=== PATIENT | male | born 1985 | race Caucasian/White ===

== ENCOUNTER 2017-06-19 18:48 | Emergency (ER) | payer BC, MEDICAID ==
[2017-06-19 19:20] VITALS: O2SAT 98
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
--- NOTE | 2017-06-19 20:19 | CT ---
PROCEDURE: CTA Chest HISTORY: LLL pain with elevated D-Dimer and opacity on x-ray Indication: Same as above Comparison: None Technique: CT of the chest was done with intravenous contrast followed by CT angiography of the pulmonary arteries. Coronal, Sagittal and 3D volumetric MIP reconstructions were generated from the acquired data. The patient was injected with contrast intravenously, without any documented immediate adverse reactions. This exam was performed according to our departmental dose-optimization program, which includes automated exposure control, adjustment of the mA and/or KV according to the patient's size and/or use of iterative reconstruction technique. FINDINGS: There is no visualization of filling defects in the main pulmonary trunk, main right and left pulmonary arteries or their lower order branches to suggest pulmonary embolism. The bilateral main pulmonary arteries are normal in caliber. There is no evidence of interventricular septal deviation or filling defects in the cardiac chambers. There are no pneumothoraces. There is presence of moderate size free-flowing bilateral pleural effusions and mild bilateral lower lobe dependent atelectasis/infiltrate, findings slightly worse on the right side. There is presence of a 4 mm noncalcified nodule in the superior segment of the right lower lobe of the lung The trachea, bilateral mainstem bronchi and the bilateral main segmental bronchi are patent without any intraluminal mass lesions. There is no gross evidence of clinically significant thoracic aortic aneurysm or thoracic aortic dissection. There is no clinically significant pericardial effusion. There are no pathologically enlarged lymph nodes in the mediastinum, bilateral hilar, bilateral supraclavicular or the bilateral axillary regions. There is presence of few old nonunited bilateral lower rib fractures The visualized thoracic spine shows evidence of prior surgery and a nonunited age indeterminate fracture involving the anterior one third of the T11 vertebral body. Incidental note is made of mild bilateral gynecomastia Limited evaluation of the evaluated upper abdomen does not show any gross abnormalities. IMPRESSION: There is no pulmonary embolism. There is presence of moderate size free-flowing bilateral pleural effusions and mild bilateral lower lobe dependent atelectasis/infiltrate, findings slightly worse on the right side. There is presence of few old nonunited bilateral lower rib fractures The visualized thoracic spine shows evidence of prior surgery and a nonunited age indeterminate fracture involving the anterior one third of the T11 vertebral body. Incidental note is made of mild bilateral gynecomastia There is presence of a 4 mm noncalcified nodule in the superior segment of the right lower lobe of the lung. *Recommendations for follow-up and management of nodules detected incidentally at non screening CT. LOW RISK PATIENT (Minimal or absent history of smoking and no other known risk factors) Nodule 4 mm or less: No further follow-up is needed. HIGH RISK PATIENT (History of smoking or of other know risk factors) Nodule 4 mm or less: Follow-up CT at 12 months. If stable no further follow-up. Electronically signed by: Dez Galarza MD 06/19/2017 8:18 PM CDT Workstation: [id number]
[2017-06-19] MEDS ORDERED: CEFUROXIME AXETIL TAB 250 MG TAB PO ONE (20:48)
[2017-06-19] MEDS ORDERED: levoFLOXacin 500 MG TAB PO ONE (21:04)
[2017-06-19 21:38] VITALS: BP 138/74; TEMP 97
== END 2017-06-19 21:20 | disposition home or self-care (01) ==
LOC: ER 18:48
DX: J18.9 Pneumonia, unspecified organism (principal); Z98.1 Arthrodesis status; G82.20 Paraplegia, unspecified

== ENCOUNTER → 2017-06-19 | Outpatient (CLI) | payer BC, MEDICAID | END | disposition home or self-care (01) | LOC: GMAB 17:32 | PROVIDERS: ATTEND Family Medicine | DX: R06.02 Shortness of breath (principal) ==

== ENCOUNTER → 2017-07-16 | Outpatient (CLI) | payer BC, OTHER | END | disposition home or self-care (01) | LOC: YCFC.O 09:39 | PROVIDERS: ATTEND Anesthesiology Pain Medicine | DX: Z79.891 Long term (current) use of opiate analgesic (principal) ==

== ENCOUNTER → 2017-09-19 | Outpatient (CLI) | payer BC, MEDICAID | END | disposition home or self-care (01) | LOC: GMAB 14:47 | PROVIDERS: ATTEND Family Medicine | DX: N23 Unspecified renal colic (principal) ==

== ENCOUNTER → 2017-09-26 | Outpatient (CLI) | payer BC, MEDICAID | END | disposition home or self-care (01) | LOC: GMAB 10:43 | PROVIDERS: ATTEND Family Medicine | DX: N39.0 Urinary tract infection, site not specified (principal); Z51.81 Encounter for therapeutic drug level monitoring ==

== ENCOUNTER → 2018-01-09 | Outpatient (CLI) | payer BC, MEDICAID | LOC: GMAB 16:45 | PROVIDERS: ATTEND Family Medicine | DX: N23 Unspecified renal colic (principal) ==

== ENCOUNTER → 2018-04-02 | Outpatient (CLI) | payer BC | LOC: YCFC.O 14:52 | DX: N39.0 Urinary tract infection, site not specified (principal) ==

== ENCOUNTER → 2018-05-13 | Outpatient (CLI) | payer BC | LOC: YCFC.O 10:18 | PROVIDERS: ATTEND Nurse Practitioner Family | DX: R34 Anuria and oliguria (principal) ==

== ENCOUNTER → 2018-06-18 | Outpatient (CLI) | payer BC | LOC: YCFC.O 11:11 | PROVIDERS: ATTEND Family Medicine | DX: N39.0 Urinary tract infection, site not specified (principal) ==

== ENCOUNTER → 2018-09-04 | Outpatient (CLI) | payer BC | LOC: LAB.O 13:40 | PROVIDERS: ATTEND Urology Female Pelvic Medicine and Reconstructive Surgery | DX: N31.9 Neuromuscular dysfunction of bladder, unspecified (principal) ==

== ENCOUNTER → 2018-09-17 | Outpatient (CLI) | payer BC | LOC: LAB.O 13:57 | PROVIDERS: ATTEND Urology Female Pelvic Medicine and Reconstructive Surgery | DX: Z01.812 Encounter for preprocedural laboratory examination (principal); N31.9 Neuromuscular dysfunction of bladder, unspecified; N36.44 Muscular disorders of urethra ==

== ENCOUNTER → 2020-06-24 | Outpatient (CLI) | payer OTHER ==
--- NOTE | 2020-06-25 12:57 | RAD ---
EXAM DESCRIPTION: Lumbar Spine 3 Views CLINICAL HISTORY: 34 years Male, PARAPLEGIA LOW BACK PAIN COMPARISON: None. Findings: Five views/radiographs Location: Lumbar spine Five lumbar type vertebral bodies. No acute fracture or subluxation. Vertebral body heights are maintained. Soft tissues are unremarkable. Mild multilevel degenerative disc disease. Thoracolumbar fusion hardware with loosening of the right L1 pedicle screw. Degenerative disc changes most pronounced at L4/L5. IMPRESSION: Multilevel lumbar spondylosis. No acute fracture or subluxation. Spinal fusion hardware with loosening of the right L1 pedicle screw. Electronically signed by: Masoud Martins MD 06/25/2020 12:56 PM CDT
== END ==
LOC: RAD 14:18
PROVIDERS: ATTEND Physical Medicine & Rehabilitation
DX: M47.896 Other spondylosis, lumbar region (principal); T84.296A Other mechanical complication of internal fixation device of vertebrae, initial encounter; Z98.1 Arthrodesis status

== ENCOUNTER → 2020-08-11 | Outpatient (CLI) | payer OTHER | LOC: YCFC.O 12:04 | PROVIDERS: ATTEND Family Medicine | DX: Z03.818 Encounter for observation for suspected exposure to other biological agents ruled out (principal) ==